=== PATIENT | male | born 1960 | race Caucasian/White ===

== ENCOUNTER 2020-04-11 06:57 | Day surgery (SDC) | payer MEDICARE, OTHER ==
[2020-04-08 13:57] LABS: COVID AG,FIA SOURCE NASOPHARYNGEAL
[~2020-04-11] VITALS: Ht 172.7 cm; Wt 73.2 kg
[~2020-04-11 06:57] MED LIST: ACET-784 PO; ALBU8HFA PO; ATOR20TA86 PO; BUDE10.2 IH; BUSP5TAB20 PO; DIVA-53 PO; DOCU-350 PO; FLUT16H NASAL; HALO10 PO; HYPR15DR23 OU; IPRA3AMP23 NEB; LEVO2.5S4 PO; LIFI1DRO OU; MONT-35 PO; OMEP20 PO; PARO20TA24 PO; RISP2TAB23 PO; SODIUM CHLORIDE 0.9% 1,000 ML IV ONE; SODIUM CHLORIDE 0.9% 1,000 ML ONE
[2020-04-11] MEDS ORDERED: LIDOCAINE 4% 50 ML SOLUTION TP ONE (06:58)
[2020-04-11] MEDS ORDERED: LIDOCAINE 2% 30 ML JELLY TP ONE (06:58)
[2020-04-11] MEDS ORDERED: BENZOCAINE 20% 50 MCG/SPRAY 57 GM TP ONE (06:58)
[2020-04-11] MEDS ORDERED: ALBUTEROL SULFATE 2.5 MG/0.5 ML NEB SOLUTION NEB ONE (06:58)
[2020-04-11] MEDS ORDERED: FentaNYL CITRATE-PF 100 MCG/2 ML VIAL ONE (08:00)
[2020-04-11] MEDS ORDERED: MIDAZOLAM HCL 2 MG/2 ML VIAL ONE (08:00)
[2020-04-11] MEDS ORDERED: MethylPREDNISolone SOD SUCC 125 MG/2 ML VIAL IVP ONE (09:15)
[2020-04-11] MEDS ORDERED: LORazepam 2 MG/ML VIAL IVP PRN (09:20)
[2020-04-11] MEDS ORDERED: MethylPREDNISolone SOD SUCC 125 MG/2 ML VIAL ONE (09:37)
[2020-04-11] MEDS ORDERED: LORazepam 2 MG/ML VIAL ONE (10:22)
[2020-04-11] MEDS ORDERED: OXYGEN THERAPY IH SCH (20:00)
== END 2020-04-11 10:30 | disposition home or self-care (01) ==
LOC: SURGERY 06:57
PROVIDERS: ATTEND Internal Medicine Critical Care Medicine
DX: J38.4 Edema of larynx (principal); B37.0 Candidal stomatitis; J44.9 Chronic obstructive pulmonary disease, unspecified; K21.9 Gastro-esophageal reflux disease without esophagitis; Z98.890 Other specified postprocedural states; Z88.0 Allergy status to penicillin; Z88.1 Allergy status to other antibiotic agents; Z88.8 Allergy status to other drugs, medicaments and biological substances
CPT/HCPCS: 31623; 31624; 71045; 87015; 87070; 87101; 87205; 87206; 87220; 87426; 88305; J2060; J2250; J2930; J3010; J7030; J7613; Z7610